=== PATIENT | male | born 1945 | race Caucasian/White ===

== ENCOUNTER 2018-12-27 05:14 | Inpatient (IN) ==
[2018-12-21 10:29] LABS: HEMATOCRIT 43.4 % (42.0-52.0); HEMOGLOBIN 14.8 g/dL (14.0-18.0); MCH 31.7 PG (27-31); MCHC 34.1 g/dL (33-37); MCV 92.9 FL (81-99); MPV 10.9 FL (7.4-10.4); RBC 4.67 XMIL (4.7-6.1); RDW 13.3 % (11.5-14.5); WBC 8.75 X1000 (4.8-10.8)
[2018-12-21 10:44] LABS: CALCIUM 8.9 mg/dL (8.8-10.2); CREATININE 1.2 mg/dL (0.7-1.2); POTASSIUM 3.6 mmol/L (3.5-5.1)
[2018-12-27] MEDS ORDERED: LEVAQUIN 500 MG/D5W 500 MG/100 ML IVPB ONE (06:00)
[2018-12-27] MEDS ORDERED: LR 1,000 ML ONE ×2 (06:00→06:31)
[2018-12-27] MEDS ORDERED: ENTEREG ONE (06:00)
[2018-12-27] MEDS ORDERED: MEFOXIN 2 GM/NS 2 GM/50 ML IVPB ONE (06:00)
[2018-12-27] MEDS ORDERED: ROBINUL ONE ×3 (06:29→09:27)
[2018-12-27] MEDS ORDERED: XYLOCAINE-MPF 2% ONE (06:29)
[2018-12-27] MEDS ORDERED: DIPRIVAN 1% ONE (06:29)
[2018-12-27] MEDS ORDERED: FENTANYL ONE (06:29)
[2018-12-27] MEDS ORDERED: DECADRON ONE ×2 (06:29→08:12)
[2018-12-27] MEDS ORDERED: ZOFRAN ONE (06:29)
[2018-12-27] MEDS ORDERED: NORCURON ONE ×2 (06:31→10:30)
[2018-12-27] MEDS ORDERED: MARCAINE 0.25% PF/EPI 1:200,000 ONE (06:31)
[2018-12-27] MEDS ORDERED: SODIUM CHLORIDE 0.9% 10 ML ONE ×4 (06:31→10:30)
[2018-12-27] MEDS ORDERED: QUELICIN (DOSE) ONE (06:57)
[2018-12-27] MEDS ORDERED: EXPAREL 1.3% ONE (07:02)
[2018-12-27] MEDS ORDERED: MARCAINE 0.5% ONE (07:02)
[2018-12-27] MEDS ORDERED: LOPRESSOR ONE (07:07)
[2018-12-27] MEDS ORDERED: ALBUMIN 25% ONE (07:29)
[2018-12-27] MEDS ORDERED: EPHEDRINE ONE (08:11)
[2018-12-27] MEDS ORDERED: NEO-SYNEPHRINE ONE (08:11)
[2018-12-27 08:31] LABS: URINE SOURCE CATH
[2018-12-27 08:36] LABS: BILIRUBIN URINE NEGATIVE (NEGATIVE); BLOOD URINE NEGATIVE (NEGATIVE); COLOR YELLOW; GLUCOSE URINE NEGATIVE (NEGATIVE); KETONE URINE NEGATIVE (NEGATIVE); LEUKOCYTES URINE NEGATIVE (NEGATIVE); NITRITE URINE NEGATIVE (NEGATIVE); PROTEIN URINE NEGATIVE (NEGATIVE); SP GRAVITY URINE 1.009; TURBIDITY URINE CLEAR (CLEAR); UR EPITHELIAL CELLS <10 /HPF (<10); URINE BACTERIA NEGATIVE /HPF; URINE RBC <10 /HPF (<10); URINE WBC <10 /HPF (<10); UROBILINOGEN URINE NORMAL (NORMAL)
[2018-12-27] MEDS ORDERED: OFIRMEV 1000 MG/ISOTONIC SOLN 1,000 MG/100 ML BOTTLE ONE (11:38)
[2018-12-27] MEDS ORDERED: NEOSTIGMINE ONE (11:47)
[2018-12-27] MEDS ORDERED: BRIDION ONE (12:34)
--- NOTE | 2018-12-27 13:14 | OPERATIVE NOTE ---
PROCEDURE DATE: 12/27/2018 PREOPERATIVE DIAGNOSIS: Right colon mass in the ascending colon. POSTOPERATIVE DIAGNOSIS: Right colon mass in the ascending colon. PROCEDURE: Laparoscopic robot assisted right hemicolectomy. SURGEON: Satnam Wang MD. FINANCIAL ANALYST ACCOUNTANT: Dr. Guevara. Dr. Guevara did his part with the renal mass and assisted with the colectomy. His presence was crucial for the completion of the case. ANESTHESIA: General endotracheal. FINDINGS: Tattooed area in the ascending colon noted and removed. COMPLICATIONS: None at time of this dictation. ESTIMATED BLOOD LOSS: 100 mL. SPECIMENS REMOVED: Right colon. BRIEF HISTORY: A 73-year-old gentleman with a right colon mass. He also had a right kidney mass, it was felt that he would benefit from removal of both. Risks, benefits, and alternatives were discussed. All questions answered. DESCRIPTION OF PROCEDURE: After informed consent was obtained, patient was brought to the operative theatre, and transferred to the operative table and placed in the supine position. General endotracheal anesthesia was then performed without complication. A formal time-out was then performed confirming patient, date, and procedure. All were in agreement. At that time, attention was given to the abdomen. The patient had a pre-existing umbilical hernia. We used that to facilitate the placement of our first trocar. We then placed another trocar in the subxiphoid area in the left upper quadrant anterior midclavicular line. Another trocar in the anterior axillary line of the left upper quadrant, 1 more trocar in the left lower quadrant in the anterior axillary line, and 1 in the midline. Using these, we docked the robot. I turned my attention to the robot console. Using the robot, we elevated the right colon, and found the tattooed area. We first isolated the ileocolic artery, and used the vessel sealer to take it down. We then did a medial to lateral approach dissecting all the way up to the hepatic flexure. We did identify the duodenum, and it was normal. We preserved it. We used firefly to make sure we had intact perfusion. We then used the JORY robotic stapler to come across the transverse colon after cleaning it up appropriately. We then mobilized the terminal ileum further. I then turned over the controls of the robot to Dr. Guevara. He placed additional trocars. For the full details of his procedure, please see his dictation. At this point to facilitate removal of the right kidney mass after Dr. Guevara had completed this case, we had to extend the umbilical incision pretty significantly both superiorly and inferiorly. Once we had done this, we removed the right kidney mass. We then eviscerated the colon, mobilized the terminal ileum, transected across the terminal ileum with a stapler. We then did a stapled [id number] antiperistaltic anastomosis, and then placed stitches in the crotch to protect it. He had a very wide mesenteric defect which was not amenable to closure so we left it intact. We then placed everything back into the abdomen. We irrigated it out copiously until the suction fluid was clear. We then closed the fascia with a running loop PDS, started at either end and stapled the skin. The patient tolerated procedure well, and transferred back to recovery room in stable condition. cc: Satnam Wang MD
[2018-12-27] MEDS ORDERED: D5 ONE (13:23)
[2018-12-27] MEDS ORDERED: 1/2 NS ONE (13:23)
[2018-12-27] MEDS ORDERED: ZOFRAN IV PRN (13:31)
[2018-12-27] MEDS: DILAUDID ONE ×4 (13:34→13:52)
[2018-12-27] MEDS ORDERED: D5 1/2 NS + KCL 20 MEQ 1,000 ML ONE (13:35)
[2018-12-27] MEDS: D5 1/2 NS + KCL 20 MEQ 1,000 ML IV SCH (14:00)
[2018-12-27] MEDS: MEFOXIN 1 GM/NS 1 GM/50 ML IVPB IV SCH (18:15)
[2018-12-27] MEDS: ADVAIR 250/50 DISKUS INH SCH (19:45)
[2018-12-27] MEDS: XALATAN 0.005% OPH SOLN BOTH EYES SCH ×2 (20:31→20:33)
[2018-12-27] MEDS: PERIDEX MT SCH (20:31)
[2018-12-27] MEDS: PATIENT'S OWN MED BOTH EYES SCH (20:32)
--- NOTE | 2018-12-27 22:07 | OPERATIVE NOTE ---
PROCEDURE DATE: 12/27/2018 PREOPERATIVE DIAGNOSIS: Right renal mass. POSTOPERATIVE DIAGNOSIS: Right renal mass. PROCEDURE PERFORMED: Right robotic-assisted laparoscopic nephrectomy. SURGEON: Mason Guevara MD ANESTHESIA: General endotracheal. COMPLICATIONS: None. BLOOD LOSS: 50 mL. SPECIMENS: Right kidney and proximal ureter. INDICATION FOR PROCEDURE: Mr. Villalta is a 73-year-old who presented to [facility] after having a CT scan done after he was diagnosed with colon cancer. CT scan showed a right lower pole renal mass that is quite endophytic and difficult to visualize. The patient's RENAL Nephrometry Score was 10P. On discussion with the patient, it was recommended to consider a partial nephrectomy versus radical nephrectomy. After thorough discussion, patient elected to proceed with radical nephrectomy. This was timed with General Surgery as they were completing a right colectomy at the same time due to his history recently diagnosed colon cancer, and both procedures were scheduled to be performed the same day. DESCRIPTION OF PROCEDURE: After informed consent was obtained, the patient was brought to the operating room and transferred to the operating table and placed in the supine position. He received preoperative antibiotics and underwent general endotracheal intubation. He was position in a modified flank position. All pressure points were padded. He was position to allow for support of all extremities and straps and tape were used to adhere to the operating room table. Formal time-out was performed with all parties in agreement, including anesthesia, surgical and nursing staff. General Surgery began first and placed all the trocars and proceeded with the right colectomy. Following completion of the collectomy itself, I took over the procedure. Due to location of the ports, decision was made to replace several of the ports. Using laparoscopic guidance, I moved the camera port to just lateral to the midline and placed 2 robotic trocars in the right midclavicular line as well as a lower port for the 4th arm. Next scissors, bipolar [place] grasper were inserted. The colon had already been resected; however, I did carry this down the white line of Toldt toward the pelvis to allow for better mobilization. Following adequate mobilization of the colon, the kidney was easily visualized, and the duodenum appeared to be mostly Kocherized. I did do a small amount of kocherization until the inferior vena cava that was seen and duodenum was thorough retracted. This was carried superiorly to the liver. The liver retractor was then inserted. I then grasped the lateral wall of the abdomen. Small amount of adhesions around the gallbladder were taken down sharply to allow for adequate mobility of the liver. Going inferiorly IVC was dissected out, and the right renal vein was visualized. Decision was then made to go to inferior to the lower pole of the kidney. Dissecting through the Gerota fascia and dissected down, the ureter and the gonadal were visualized. The gonadal was dropped inferiorly, and the ureter was then brought up and dissecting toward the renal hilum along the psoas muscle allowed for good visualization in an avascular plane. This was carried up toward the renal hilum. The patient had known 2 renal arteries and 1 renal vein. First renal artery was encountered inferior to the renal vein, and this was dissected out and visualized and stapled with a 45mm laparoscopic stapler. Next, the renal vein and the second renal artery were visualized and was also dissected out and isolated. Using a vascular load of the laparoscopic stapler the vein and artery were stapled and cut. This allowed for good mobility of the kidney. The staple line was visualized with no evidence of active bleeding and stapled lumens of 2 arteries and 1 vein were seen. Dissection was then carried toward the upper pole, and an upper pole cyst was encountered and drained for easier dissection of adrenal. A plane was developed between the upper pole and the adrenal, and the adrenal was able to be spared. Dissecting around the upper pole and then the lateral attachments were then taken down, and good mobility of the kidney was found. It was carried all the way down to the inferior pole. The ureter was then encountered, and two clips were applied and incised in between. The patient's specimen was completely mobile. The grasper was passed through the trocar and grasped with the specimen for later extraction. The laparoscopic pressure was then decreased down to 3 mmHg with no evidence of active bleeding, and staple line appeared to be intact with hemostasis. The liver retractor was then removed, and the liver was placed back to its normal position. All instruments were removed from their robotic trocars. The robot was undocked. Using electrocautery, midline incision supraumbilical was undertaken for extraction of the kidney. Following this, the procedure was turned over to Dr. Wang who completed his portion of the procedure. Please see separately dictated operative note. DISPOSITION: Patient will be admitted for observation and await return of bowel function. cc: MD Satnam Chavez MD [facility]
[2018-12-27] MEDS: MORPHINE IV PRN (23:55)
[2018-12-28] MEDS: MEFOXIN 1 GM/NS 1 GM/50 ML IVPB IV SCH ×3 (02:52→17:54)
[2018-12-28] MEDS ORDERED: NICODERM PATCH TD PRN (05:37)
--- NOTE | 2018-12-28 06:13 | GENERAL SURGERY PROGRESS NOTE ---
DATE: 12/28/2018 SUBJECTIVE: The patient seems to be doing okay. No major issues. He did drain a little bit from the lower aspect of the incision but, again, is doing okay. OBJECTIVE: Vital Signs: The patient is currently afebrile. His vital signs stable. General: No acute distress. Cardiovascular: Regular rate and rhythm. Lungs: Grossly clear. Abdomen: Soft, appropriately tender. Mild distention. LABORATORY: None this morning as of yet. ASSESSMENT AND PLAN: A 73-year-old gentleman status post laparoscopic robot-assisted right hemicolectomy and right nephrectomy. Postoperative state. At this time patient seems to be doing okay. We will await more definitive return of bowel function but he is on a clear liquid diet. The patient is to start to mobilize today. We will make sure he gets heparin subcu. He has SCDs on. We have him on Nexium. Continue to monitor. cc: Satnam Wang MD
--- NOTE | 2018-12-28 08:09 | PROGRESS NOTE ---
DATE: 12/28/2018 SUBJECTIVE: Postop day 1 from right robotic radical nephrectomy and right colon resection and primary anastomosis by Dr. Wang. The patient clinically is doing well. He is complaining of some pain today, which appears appropriate postoperatively. Denies any nausea, but is having burping without flatus passage. The patient has not been ambulatory and is on a clear liquid diet. He states he did have some drainage from the midline incision overnight. This seems to have improved OBJECTIVE: Temperature 99.1 degrees, heart rate 62, blood pressure 120/70, oxygen saturation 98% on 2 L nasal cannula. General: Mild distress, alert, oriented x3. Respiratory: Good respiratory effort without audible wheezing or rales. Nasal cannula in place. Abdomen: Soft, slightly distended. Midline incision covered with dressing. No significant shadowing. Multiple laparoscopic incisions visualized on the right and left abdomen. : Urethral catheter in place draining clear yellow urine. No evidence of suprapubic tenderness. No CVA tenderness. LABORATORIES: Morning labs have not been drawn. ASSESSMENT AND PLAN: Mr. Villalta is a 73-year-old who is postop day 1 from right robotic nephrectomy and right colon resection by Dr. Wang. The patient seems to be progressing appropriately. His abdomen is slightly distended. He does have tenderness to palpation. Midline incision is covered with dressing. Multiple laparoscopic incisions are present. The patient has been afebrile. Blood pressure and heart rate within normal limits. We will continue to monitor. We will plan to remove the Theodroe catheter today, encouraged him to be ambulatory. Encouraged him to use his incentive spirometer, p.o. pain medication as tolerated. Continue with aggressive bowel regimen per General surgery. Please call with questions or concerns. cc: MD Satnam Chavez MD [facility]TD[facility]
[2018-12-28] MEDS: ADVAIR 250/50 DISKUS INH SCH ×2 (08:17→19:50)
[2018-12-28] MEDS: PERIDEX MT SCH ×2 (09:06→20:30)
[2018-12-28] MEDS: NEXIUM PO SCH (09:06)
[2018-12-28] MEDS: ENTEREG PO SCH ×2 (09:06→20:30)
[2018-12-28] MEDS: PATIENT'S OWN MED BOTH EYES SCH (09:08)
[2018-12-28 10:10] LABS: HEMATOCRIT 39.6 % (42.0-52.0); HEMOGLOBIN 13.1 g/dL (14.0-18.0); MCH 31.6 PG (27-31); MCHC 33.1 g/dL (33-37); MCV 95.4 FL (81-99); MPV 11.4 FL (7.4-10.4); RBC 4.15 XMIL (4.7-6.1); RDW 13.4 % (11.5-14.5); WBC 12.15 X1000 (4.8-10.8)
[2018-12-28 10:41] LABS: CALCIUM 8.5 mg/dL (8.8-10.2); CREATININE 1.9 mg/dL (0.7-1.2); POTASSIUM 3.6 mmol/L (3.5-5.1)
[2018-12-28] MEDS: D5 1/2 NS + KCL 20 MEQ 1,000 ML IV SCH (11:02)
[2018-12-28] MEDS: MORPHINE IV PRN ×3 (12:04→22:44)
[2018-12-28] MEDS: HEPARIN SUBQ SCH ×2 (13:53→20:30)
[2018-12-29] MEDS: XALATAN 0.005% OPH SOLN BOTH EYES SCH ×2 (01:39→21:51)
[2018-12-29] MEDS: PATIENT'S OWN MED BOTH EYES SCH ×3 (01:39→23:31)
[2018-12-29] MEDS: HEPARIN SUBQ SCH ×3 (04:19→21:50)
[2018-12-29] MEDS: MEFOXIN 1 GM/NS 1 GM/50 ML IVPB IV SCH ×3 (04:19→21:50)
[2018-12-29] MEDS: D5 1/2 NS + KCL 20 MEQ 1,000 ML IV SCH ×3 (04:19→23:30)
--- NOTE | 2018-12-29 05:50 | GENERAL SURGERY PROGRESS NOTE ---
DATE: 12/29/2018 SUBJECTIVE: Patient seems to be doing okay. He is a little bit bloated. He did have a low-grade fever last night of 100.1. He has been up and moving. He is not sick to his stomach. He has not passed any gas but he has tolerated his clear liquids. OBJECTIVE: Vital signs: T max is 100.1, T current is 98.9. Remainder of vital signs have been stable. General: No acute distress. Cardiovascular: Regular rate and rhythm. Lungs: Grossly clear. Abdomen: Soft, somewhat distended. Bowel sounds auscultated. Incision with dressing intact. ASSESSMENT AND PLAN: A 73-year-old gentleman postoperative day #2 from laparoscopic robot- assisted right hemicolectomy, right nephrectomy. Postop state at this time. Patient seems to be doing okay, he did have a low-grade fever. Will encourage ambulation and incentive spirometer. We will keep him on his clear liquid diet given the fact that he is still a little distended, but I think he is going to have return of bowel function here pretty soon. cc: Satnam Wang MD
[2018-12-29] MEDS: ADVAIR 250/50 DISKUS INH SCH ×2 (07:20→20:15)
--- NOTE | 2018-12-29 08:39 | PROGRESS NOTE ---
DATE: 12/29/2018 SUBJECTIVE: No acute events yesterday. The patient states he has not passed any flatus. He continues to have burping. He has tolerated clear liquids. Denies any nausea, vomiting. The patient's pain seems to be better controlled today. The patient has been up and out of bed twice this morning. His Theodore catheter was removed yesterday and patient has voided several times. OBJECTIVE: Vitals: Temperature 99.5 degrees, heart rate 78, blood pressure 150/78, oxygen saturation 96% on room air. General: No acute distress. Resting comfortably in bed, alert and oriented x3. Respiratory: Good respiratory effort without audible wheezing or rales. The patient is on room air this morning. GI: Abdomen soft, nontender, slightly distended. No palpable masses. Midline incision covered with dressing as well as multiple laparoscopic incisions. : No suprapubic tenderness. No CVA tenderness. ASSESSMENT AND PLAN: Mr. Villalta is a 73-year-old with a history of renal mass in the right kidney as well as a right colon mass with biopsy-proven colon cancer. The patient is postop day 2 from a robotic-assisted laparoscopic right nephrectomy and right ascending colon resection by Dr. Wang. The patient clinically seems to be stable. His pain seems to be better controlled today. He continues to not pass flatus. He has been voiding without issue. Denies any nausea or vomiting, and tolerating a clear liquid diet. The patient has been ambulatory. I encouraged him to remain ambulatory today and encouraged him to walk in the hallway. Recommended using his incentive spirometer more as he was having some coughing yesterday, which led to incision discomfort. We will continue to progress his diet per General Surgery recommendations after colon resection. We will continue to monitor. Please call with questions or concerns. cc: MD Satnam Chavez MD [facility]
[2018-12-29] MEDS: NEXIUM PO SCH (08:59)
[2018-12-29] MEDS: PERIDEX MT SCH ×2 (08:59→21:50)
[2018-12-29] MEDS: ENTEREG PO SCH ×2 (08:59→21:50)
[2018-12-29] MEDS: MORPHINE IV PRN ×2 (13:24→22:07)
[2018-12-30] MEDS: MEFOXIN 1 GM/NS 1 GM/50 ML IVPB IV SCH (05:34)
[2018-12-30] MEDS: HEPARIN SUBQ SCH ×3 (05:41→20:27)
--- NOTE | 2018-12-30 06:27 | GENERAL SURGERY PROGRESS NOTE ---
DATE: 12/30/2018 SUBJECTIVE: Patient seems to be doing okay. He says he is feeling better. He has not had a bowel movement, but he has tolerated his clear liquid diet. OBJECTIVE: Vital Signs: Patient is currently afebrile. His vital signs stable. General: No acute distress. Cardiovascular: Regular rate and rhythm. Lungs: Grossly clear. Abdomen: A little bit distended, but appropriately tender. He does have bowel sounds. Incision with dressing in place. ASSESSMENT AND PLAN: A 73-year-old gentleman, currently postoperative day #3 from laparoscopic robot-assisted right hemicolectomy and right nephrectomy. Postoperative state. At this time, we will advance to a full liquid diet and put advance diet as tolerated. We will stop his IV antibiotics. He is on heparin, he is on Nexium. He does have SCDs on. We will need to try to mobilize him today. cc: Satnam Wang MD
[2018-12-30] MEDS: ADVAIR 250/50 DISKUS INH SCH ×2 (07:35→19:52)
--- NOTE | 2018-12-30 08:22 | PROGRESS NOTE ---
DATE: 12/30/2018 SUBJECTIVE: Postop day 3 from robotic-assisted laparoscopic right nephrectomy and right colon resection by Dr. Wang. The patient clinically is doing better today. He states his pain is better controlled. He is able to be up into the chair for most of the day yesterday. Denies any nausea. Denies any flatus. The patient is burping and tolerating a clear liquid diet. OBJECTIVE: Vital Signs: Temperature 97.5 degrees, heart rate 65, blood pressure 148/80, oxygen saturation 94% on room air. General: No acute distress, sitting on the side of the bed. Respiratory: Good respiratory effort without audible wheezing or rales. Abdomen: Soft, nontender, slightly distended. Midline incision with maylin, as well as multiple laparoscopic incisions covered. : No suprapubic tenderness. No CVA tenderness. ASSESSMENT AND PLAN: Mr. Villalta is a 73-year-old, who is postop day 3 from right robotic- assisted laparoscopic nephrectomy and a robotic-assisted right colon resection by Dr. Wang. The patient clinically is doing well. Seems to be more active today, up to the side of the bed. I encouraged him to remain ambulatory today and to walk in the hallways. He states that his is bringing him a walker so that he can perform this. Patient's diet has been advanced to a full liquid diet today by Dr. Wang. The patient has not had any flatus and continues to have mostly burping. I told him to take it easy and not overdo it, as he still does not have return of bowel function. He does state that he feels like he may be able to pass gas later today. We will continue to monitor. Please call with questions or concerns. cc: MD Satnam Chavez MD [facility]
[2018-12-30] MEDS: NEXIUM PO SCH (09:18)
[2018-12-30] MEDS: ENTEREG PO SCH ×2 (09:18→20:27)
[2018-12-30] MEDS: PERIDEX MT SCH ×2 (09:19→20:26)
[2018-12-30] MEDS: PATIENT'S OWN MED BOTH EYES SCH ×2 (09:19→20:28)
[2018-12-30] MEDS: D5 1/2 NS + KCL 20 MEQ 1,000 ML IV SCH (18:29)
[2018-12-30] MEDS: XALATAN 0.005% OPH SOLN BOTH EYES SCH (20:27)
[2018-12-30] MEDS: MORPHINE IV PRN (20:44)
[2018-12-31] MEDS: MORPHINE IV PRN (03:09)
[2018-12-31] MEDS: HEPARIN SUBQ SCH ×4 (04:25→23:17)
--- NOTE | 2018-12-31 06:07 | GENERAL SURGERY PROGRESS NOTE ---
DATE: 12/31/2018 SUBJECTIVE: Patient seems to be doing well. He had a bowel movement. He is passing gas. He seems to be tolerating his diet. OBJECTIVE: Vital Signs: Patient is currently afebrile. His vital signs stable. General: No acute distress. Cardiovascular: Regular rate and rhythm. Lungs: Grossly clear. Abdomen: Soft, appropriately tender. Incision is healing well. Dressing removed. PATHOLOGY: Reviewed, his kidney did show renal cell carcinoma, T1b N0, large-cell. Large intestines showed invasive adeno T3 N1b with 2 of 15 lymph nodes positive. ASSESSMENT AND PLAN: A 73-year-old gentleman, currently postoperative day #4 from laparoscopic robot-assisted right hemicolectomy and right nephrectomy. Postoperative state. At this time, patient is doing well. We will advance him to a regular diet, advance him to oral pain medicine. If he is doing okay this afternoon, we will discharge him. If not, keep him till tomorrow. Otherwise, continue routine postoperative care. Discussed pathology with the patient. He needs to follow up with Dr. Spring. cc: Satnam Wang MD
[2018-12-31] MEDS: ADVAIR 250/50 DISKUS INH SCH ×2 (08:05→21:05)
[2018-12-31] MEDS: NEXIUM PO SCH (09:59)
[2018-12-31] MEDS: PERIDEX MT SCH ×3 (09:59→20:01)
[2018-12-31] MEDS: ENTEREG PO SCH ×3 (09:59→23:18)
[2018-12-31] MEDS: PATIENT'S OWN MED BOTH EYES SCH ×2 (10:01→20:02)
--- NOTE | 2018-12-31 14:30 | PROGRESS NOTE ---
DATE: 12/31/2018 SUBJECTIVE: No acute events overnight. The patient is able to have a bowel movement yesterday. He states that he feels better. He has been tolerating a diet. Denies any nausea or vomiting. He feels like he is less distended today. He continues to pass gas. All vital signs within normal limits. OBJECTIVE: Vital Signs: Temperature 97.5 degrees, heart rate 53, blood pressure 134/70, oxygen saturation 96% on room air. General: No acute distress. Sitting up on the side of the bed comfortably. Respiratory: Good respiratory effort without audible wheezing or rales. Abdomen: Soft, nontender, nondistended. Midline incision covered with maylin. Multiple laparoscopic incisions visualized with maylin present. Genitourinary: No suprapubic tenderness. No CVA tenderness. ASSESSMENT AND PLAN: Mr. Villalta is a 73-year-old who is postoperative day 4 from right robotic- assisted laparoscopic nephrectomy with a robotic-assisted right colon resection by Dr. Wang. The patient clinically is doing well and is more ambulatory yesterday. I encouraged him to remain ambulatory today. The patient's diet has been advanced to regular. If the patient tolerates this, I could consider discharging him in the coming days. The patient is passing flatus and having bowel movements yesterday. He clinically appears improved and is approaching discharge. The patient can follow up in the Urology Clinic in 2 weeks for a followup of his pathology and further evaluation of renal cancer. 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 This was relay to the patient today. We will continue to discuss the clinical significance of this in the future, but it appears that his cancer was confined to the kidney itself and was separate from colon cancer. The patient did have aggressive cancer on his colonic resection showing T3 pathologic N1b disease per report. Please call with questions or concerns. cc: MD Satnam Chavez MD [facility]
[2018-12-31] MEDS: D5 1/2 NS + KCL 20 MEQ 1,000 ML IV SCH (15:05)
[2018-12-31] MEDS: NORCO-10 PO PRN (19:58)
[2018-12-31] MEDS: XALATAN 0.005% OPH SOLN BOTH EYES SCH ×2 (19:58→20:01)
[2019-01-01] MEDS: NORCO-10 PO PRN ×2 (00:15→21:52)
[2019-01-01] MEDS: ADVAIR 250/50 DISKUS INH SCH ×2 (08:39→19:34)
--- NOTE | 2019-01-01 08:47 | PROGRESS NOTE ---
DATE: 01/01/2019 Mr. Ryland Villalta is a 73-year-old white male patient of Dr. Wang who has undergone a right colon resection and also a resection of his right kidney. He is postop day 5. He is tolerating some of his regular diet but he is not eating much. His abdomen is distended. His trocar sites and midline incision seem to be intact without problems. OBJECTIVE: VITAL SIGNS: His heart rate is 58, blood pressure 135/68, O2 saturation 94%. He is afebrile. He states that he has passed some flatus. PLAN: We will hep lock his IV fluids. We will try to increase his activity and see how he tolerates his diet. cc: MD Satnam Villaseñor MD
[2019-01-01] MEDS: PERIDEX MT SCH ×2 (11:18→21:52)
[2019-01-01] MEDS: NEXIUM PO SCH (11:19)
[2019-01-01] MEDS: ENTEREG PO SCH ×2 (11:19→21:53)
[2019-01-01] MEDS: D5 1/2 NS + KCL 20 MEQ 1,000 ML IV SCH (11:20)
[2019-01-01] MEDS: PATIENT'S OWN MED BOTH EYES SCH ×2 (11:21→21:53)
[2019-01-01] MEDS ORDERED: SALINE LOCK IV FLUID XX ONE (11:44)
[2019-01-01] MEDS: HEPARIN SUBQ SCH ×3 (15:26→21:52)
[2019-01-01] MEDS: XALATAN 0.005% OPH SOLN BOTH EYES SCH (21:53)
[2019-01-02] MEDS: HEPARIN SUBQ SCH (05:18)
[2019-01-02 07:36] VITALS: BP 139/70
[2019-01-02] MEDS: ADVAIR 250/50 DISKUS INH SCH (07:57)
[2019-01-02] MEDS: PERIDEX MT SCH (10:02)
[2019-01-02] MEDS: NEXIUM PO SCH (10:02)
[2019-01-02] MEDS: ENTEREG PO SCH (10:02)
[2019-01-02] MEDS: PATIENT'S OWN MED BOTH EYES SCH (10:03)
--- NOTE | 2019-01-02 11:13 | DISCHARGE SUMMARY ---
ADMISSION DATE: 12/27/2018 DISCHARGE DATE: 01/02/2019 ADMITTING DIAGNOSES: 1. Right colon mass ascending colon. 2. Right renal mass. DISCHARGE DIAGNOSES: 1. Right ascending colon mass. 2. Right renal mass. PRINCIPAL PROCEDURE: 1. Laparoscopic robotic assisted right hemicolectomy. 2. Resection right kidney per Dr. Guevara 12/27/2018/ DISCHARGE DIET: Regular. DISCHARGE DISPOSITION: He will see Dr. Wang this coming . DISCHARGE MEDICATIONS: He is to return to his home medications. HOSPITAL COURSE: Mr. Ryland Villalta was admitted on 12/27/2018, and underwent a right colectomy and also a right nephrectomy per Dr. Wang and Dr. Guevara. Dr. Wang performed a robotic assisted right colon resection and Dr. Guevara performed a right robotic assisted laparoscopic nephrectomy both on 12/27/2018. The surgeries went well and after surgery went to the recovery room and then the floor. We feel that his postoperative convalescence has been normal. He is now able to ambulate in the halls. All his incision sites are healing well. He has had bowel activity and he is eating a regular diet. OBJECTIVE: His heart rate was 64, blood pressure 139/70. O2 saturation 97%. He was afebrile, on no antibiotics. We will discharge him home under the care of his family. He is to return to his home medications and knows to contact us with any problems such as increasing abdominal pain, distention or fever. cc: MD Satnam Villaseñor MD
== END 2019-01-02 10:23 | disposition home or self-care (01) | DRG 330 ==
LOC: SURHOLD 05:14 → EDSTATUS 07:00 → 4N 09:12
PROVIDERS: ADMIT Surgery; ATTEND Surgery
CPT/HCPCS: 80048; 81001; 85027; 85610; 85730; 88307; 88309; 94640; 94760; 94761; 94799; 97116; 97162; 97530; A9270; C9290; J0131; J0330; J0694; J1100; J1170; J1644; J1956; J2270; J2370; J2405; J3010; J3480; J7120; P9047; S0020; S2900